=== PATIENT | male | born 1955 | race Caucasian/White ===

== ENCOUNTER → 2017-01-25 | Outpatient (CLI) | payer OTHER ==
[~2017-01-25] MED LIST: NAPR220T40 PO; POTA1080 PO; SIMV40TA2 PO; TAMS0.4C38 PO
--- NOTE | 2017-01-25 11:57 | DIAGNOSTIC IMAGING REPORT ---
KUB CLINICAL HISTORY: N20.0 [id number] nephrocalcinosis COMPARISON STUDY: 05/11/2016 FINDINGS: Nonobstructive bowel pattern. Bilateral nephrocalcinosis unchanged in the prior exam. No significant paravertebral calcifications. No significant pelvic calcifications. IMPRESSION: Bilateral nephrocalcinosis. No change from the prior study. No ureteral calcifications by plain film criteria The above report was generated using voice recognition software. It may contain grammatical, syntax or spelling errors. Electronically signed by: Gerry Martinez M.D. 01/25/2017 11:56 AM Dictated Date/Time: 01/25/2017 11:53 AM
== END | disposition home or self-care (01) ==
LOC: C.RAD 11:36
PROVIDERS: ATTEND Urology
DX: N20.0 Calculus of kidney (principal)

== ENCOUNTER → 2017-06-09 | Outpatient (CLI) | payer OTHER ==
--- NOTE | 2017-06-09 10:44 | DIAGNOSTIC IMAGING REPORT ---
KUB CLINICAL HISTORY: Nephrolithiasis. FINDINGS: 2 AP supine abdominal radiographs are compared to study dated 01/25/2017 and correlated with abdominal CT dated 08/01/2012. There is a nonobstructed abdominal bowel gas pattern. There are numerous small bilateral nonobstructing renal calculi. The largest stone is on the right and measures up to 4 mm. There is no evidence of ureteral calculus. The bony structures appear intact. IMPRESSION: Bilateral nonobstructing renal calculi as above. These are similar appearance to the 01/25/2017 examination. Electronically signed by: Jorge Jarrett M.D. 06/09/2017 10:43 AM Dictated Date/Time: 06/09/2017 10:42 AM
== END | disposition home or self-care (01) ==
LOC: C.RAD 09:52
PROVIDERS: ATTEND Urology
DX: N20.0 Calculus of kidney (principal)

== ENCOUNTER → 2017-10-04 | Outpatient (CLI) | payer OTHER ==
--- NOTE | 2017-10-04 12:08 | DIAGNOSTIC IMAGING REPORT ---
LUMBAR SPINE RADIOGRAPHS CLINICAL HISTORY: Lumbago. COMPARISON: None FINDINGS: Bilateral renal calculi are noted. The largest calculus is a 5 mm right renal calculus. No dilated loops of bowel are noted. There is slight anterolisthesis of L4 and L5 which is likely due to facet arthrosis. Vertebral body heights are maintained. There is severe multilevel facet arthrosis within lower lumbar spine with mild multilevel disc space narrowing and osteophytosis. IMPRESSION: 1. No acute lumbar spine fracture. 2. Severe multilevel lower lumbar spine facet arthrosis and mild multilevel degenerative disc disease. 3. Bilateral nephrolithiasis. Electronically signed by: Augustin Palacios M.D. 10/04/2017 12:07 PM Dictated Date/Time: 10/04/2017 12:04 PM
== END | disposition home or self-care (01) ==
LOC: C.RAD 11:38
PROVIDERS: ATTEND Physician Assistant
DX: M47.816 Spondylosis without myelopathy or radiculopathy, lumbar region (principal); N20.0 Calculus of kidney